=== PATIENT | female | born 1935 | race Caucasian/White ===

== ENCOUNTER 2017-09-25 08:44 | Observation (INO) ==
[2017-09-25] MEDS ORDERED: MECLIZINE 25 MG TABLET PO ONE (08:56)
[2017-09-25] MEDS ORDERED: SALINE FLUSH 10ml SYRINGE IVF PRN (08:56)
--- NOTE | 2017-09-25 09:00 | Emergency Department Report ---
Dizziness HPI - General Chief Complaint: Dizziness Stated Complaint: dizziness Time Seen by Provider: 09/25/17 08:47 Source: patient, EMS, RN notes reviewed, old records reviewed Mode of arrival: EMS Limitations: altered mental status - History of Present Illness HPI Narrative: 81yo woman presents to the ER by EMS this AM for 'dizziness'. Pt is unable to further describe her dizziness. Pt awoke this AM and needed to go to the bathroom. She required assistance of her to get there this AM (unclear whether to dizziness, lack of strength, or some other reason); once there, she was not able to stand up from the seat without help. Pt has difficulty answering questions directly. Pt talks around questions/ issues without addressing them initially. MD complaint: dizziness Onset (ago): hour(s) Timing: awoke with symptoms Description: lightheadedness History of similar episodes: Yes History of trauma: No Severity: similar to previous episodes Relieving factors: nothing Exacerbating factors: movement, exertion Associated symptoms: denies other symptoms - Related Data Home Medications Medication Instructions Recorded Confirmed Ropinirole HCl [Requip] 2 mg PO HS #0 08/04/08 09/25/17 Acetaminophen [Acetaminophen Extra 500 mg PO Q4H PRN #0 tab 07/02/15 09/25/17 Strength] Atorvastatin Calcium 20 mg PO HS #0 07/02/15 09/25/17 Carvedilol 3.125 mg PO BID #0 07/02/15 09/25/17 Rivaroxaban [Xarelto] 20 mg PO WS #0 tab 07/02/15 09/25/17 Donepezil HCl [Aricept] 10 mg PO DAILY 09/25/17 09/25/17 Duloxetine [Cymbalta] 60 mg PO DAILY 09/25/17 09/25/17 Levothyroxine Sodium 100 mcg PO ACB 09/25/17 09/25/17 Ropinirole [Requip] 0.5 mg PO PM 09/25/17 09/25/17 Allergies Allergy/AdvReac Type Severity Reaction Status Date / Time omeprazole Allergy Mild NAUSEA & Verified 09/25/17 08:50 VOMITING duloxetine Allergy Unknown DIARRHEA Verified 09/25/17 08:50 meloxicam Allergy Unknown Verified 09/25/17 08:50 Review of Systems All systems: reviewed and negative except as stated Musculoskeletal: Reports: as per HPI, other (Lack of strength). Denies: back pain, joint swelling, arthralgia, myalgia Neurological: Reports: as per HPI, weakness, confusion, abnormal gait, vertigo. Denies: headache, numbness, paresthesias [facility] Patient Stated Medical History Dementia Yes Hypertension Yes Myocardial Infarction Yes Other Musculoskeletal Yes: restless legs Medical History Updates: Hyperlipidemia. Hypertension. Hypothyroid. A-fib. RLS. Shingles Physical Exam - Limitations Limitations: altered mental status - General General appearance: alert, in no apparent distress, obese - Head Head exam: atraumatic, normocephalic, normal inspection - Eye Eye exam: Present: normal appearance, PERRL, EOMI. Absent: scleral icterus - ENT ENT exam: Present: normal exam, normal oropharynx, mucous membranes moist, normal external ear exam - Neck Neck exam: Present: normal inspection, full ROM, trachea midline. Absent: tenderness, lymphadenopathy - Chest Chest inspection: Present: normal inspection, symmetric chest wall rise. Absent : tenderness, rash - Respiratory Respiratory exam: Present: normal lung sounds bilaterally. Absent: respiratory distress, wheezes, stridor, prolonged expiratory phase, crackles - Cardiovascular Cardiovascular exam: Present: regular rate, normal rhythm, normal heart sounds. Absent: rubs, gallop, clicks - Abdominal Exam Abdominal exam: Present: soft, normal bowel sounds. Absent: distention, tenderness, guarding, rebound, rigidity - Extremities Exam Extremities exam: Present: normal inspection, full ROM, normal capillary refill. Absent: tenderness, pedal edema - Skin Skin exam: Present: warm, dry, intact. Absent: rash - Neurological Exam Neurological exam: Present: alert, reflexes normal. Absent: normal gait - Psychiatric Psychiatric exam: Present: agitated, anxious Course - Consultations Consultation #1: Hospitalist: Will accept pt for further eval of possible TIA/CVA. Time: 10:42 Vital Signs Pulse Rate 60 09/25/17 08:45 Blood Pressure 120/60 09/25/17 08:45 Temperature 97.6 F 09/25/17 08:50 Pulse Rate 60 09/25/17 08:50 Respiratory Rate 20 09/25/17 08:50 Blood Pressure 120/60 09/25/17 08:50 Pulse Oximetry 98 09/25/17 08:50 Dizziness - MDM Narrative Medical decision making narrative: Pt with initial episode of dysphagia and some orthostatic sx. Concern for TIA vs CVA, based on age, comorbidities, and presentation. Contacted hospitalist, who has agreed to admit pt for further eval. - Differential Diagnosis Likely: adverse reaction to drug, benign paroxysmal positional vertigo, orthostatic hypotension, cerebrovascular accident, transient cerebral ischemia - Medical Records Attestation: I reviewed the patient's medical records. - Lab Data Attestation: I reviewed the patient's lab results. Result diagrams: 09/25/17 09:01 09/25/17 09:01 Lab Results 09/25/17 09/25/17 09/25/17 Range/Units 08:58 09:01 09:01 WBC 6.2 (4.5-11.0) T/MM3 RBC 4.36 (4.00-5.20) M/MM3 Hgb 13.6 (12-16) GM/DL Hct 40.7 (36-46) % MCV 93.3 (80-100) UM3 MCH 31.2 (26-34) UUG MCHC 33.4 (31-37) GM/DL RDW Std Deviation 43.8 (36.9-50.2) FL Plt Count 229 (130-400) T/MM3 MPV 10.3 (9.4-12.4) UM3 Neutrophils % (Manual) 59.0 (33-66) % Lymphocytes % (Manual) 29.0 (23-45) % Reactive Lymphs % 1.0 H (0-0) % Monocytes % (Manual) 8.0 (0-9.0) % Eosinophils % (Manual) 3.0 (0-4) % Neutrophils # (Manual) 3.7 (1.8-7.7) T/MM3 Lymphocytes # (Manual) 1.8 (1-4.8) T/MM3 Abs React Lymphs (Man) 0.1 H (0-0) T/MM3 Monocytes # (Manual) 0.5 (0-0.8) T/MM3 Eosinophils # (Manual) 0.2 (0-0.5) T/MM3 RBC Morph Comment Normal Turbidity < 20 (0-20) Sodium 142 (134-144) MEQ/L Potassium 4.0 (3.6-5) MEQ/L Chloride 106 (98-107) MEQ/L Carbon Dioxide 28 (22-30) MEQ/L Anion Gap 8 (5-15) meq/L BUN 18.0 H (7-17) MG/DL Creatinine 0.9 (0.7-1.2) mg/dL GFR Calculation 60 BUN/Creatinine Ratio 20 (6-26) RATIO Glucose 101 (65-110) MG/DL Glucometer 101 (65-110) mg/dL Calculated Osmolality 275 (261-280) MOSM/KG Calcium 9.9 (8.4-10.2) MG/DL Total Bilirubin 0.50 (0.20-1.30) MG/DL Icterus Index < 2 (0-7) AST 25 (14-36) U/L ALT 20 (1-35) U/L Alkaline Phosphatase 112 (38-126) U/L Troponin I < 0.012 (0-0.12) ng/ml Total Protein 6.5 (6.3-8.2) g/dL Albumin 4.2 (3.5-5.0) g/dL Globulin 2.3 L (2.4-3.6) G/DL Albumin/Globulin Ratio 1.8 (1.1-2.2) RATIO Plasma Lactate 1.4 (0.6-2.2) MMOL/L Specimen Hemolysis < 15 (0-25) Ur Collection Type Urine Color (YELLOW) Urine Clarity Urine pH (5.0-8.0) Ur Specific [place] (1.015-1.025) Urine Protein (NEGATIVE) Urine Glucose (UA) (NEGATIVE) Urine Ketones (NEGATIVE) Urine Occult Blood (NEGATIVE) Urine Nitrate (NEGATIVE) Urine Bilirubin (NEGATIVE) Urine Urobilinogen (NORMAL) EU/DL Ur Leukocyte Esterase (NEGATIVE) Urinalysis Comment 09/25/17 Range/Units 09:23 WBC (4.5-11.0) T/MM3 RBC (4.00-5.20) M/MM3 Hgb (12-16) GM/DL Hct (36-46) % MCV (80-100) UM3 MCH (26-34) UUG MCHC (31-37) GM/DL RDW Std Deviation (36.9-50.2) FL Plt Count (130-400) T/MM3 MPV (9.4-12.4) UM3 Neutrophils % (Manual) (33-66) % Lymphocytes % (Manual) (23-45) % Reactive Lymphs % (0-0) % Monocytes % (Manual) (0-9.0) % Eosinophils % (Manual) (0-4) % Neutrophils # (Manual) (1.8-7.7) T/MM3 Lymphocytes # (Manual) (1-4.8) T/MM3 Abs React Lymphs (Man) (0-0) T/MM3 Monocytes # (Manual) (0-0.8) T/MM3 Eosinophils # (Manual) (0-0.5) T/MM3 RBC Morph Comment Turbidity (0-20) Sodium (134-144) MEQ/L Potassium (3.6-5) MEQ/L Chloride (98-107) MEQ/L Carbon Dioxide (22-30) MEQ/L Anion Gap (5-15) meq/L BUN (7-17) MG/DL Creatinine (0.7-1.2) mg/dL GFR Calculation BUN/Creatinine Ratio (6-26) RATIO Glucose (65-110) MG/DL Glucometer (65-110) mg/dL Calculated Osmolality (261-280) MOSM/KG Calcium (8.4-10.2) MG/DL Total Bilirubin (0.20-1.30) MG/DL Icterus Index (0-7) AST (14-36) U/L ALT (1-35) U/L Alkaline Phosphatase (38-126) U/L Troponin I (0-0.12) ng/ml Total Protein (6.3-8.2) g/dL Albumin (3.5-5.0) g/dL Globulin (2.4-3.6) G/DL Albumin/Globulin Ratio (1.1-2.2) RATIO Plasma Lactate (0.6-2.2) MMOL/L Specimen Hemolysis (0-25) Ur Collection Type Urine, void-cc/notcc Urine Color Yellow (YELLOW) Urine Clarity Clear Urine pH 8.0 (5.0-8.0) Ur Specific [place] 1.010 L (1.015-1.025) Urine Protein Negative (NEGATIVE) Urine Glucose (UA) Trace A (NEGATIVE) Urine Ketones Negative (NEGATIVE) Urine Occult Blood Negative (NEGATIVE) Urine Nitrate Negative (NEGATIVE) Urine Bilirubin Negative (NEGATIVE) Urine Urobilinogen 0.2 (NORMAL) EU/DL Ur Leukocyte Esterase Negative (NEGATIVE) Urinalysis Comment Microscopic not ind. - Radiology Data Attestation: I reviewed the patient's radiology results. CT Head: FINDINGS: Mild atrophy. The ventricles are stable. There are scattered areas of low attenuation in the white matter which most likely represent changes from chronic microvascular ischemia. The brainstem, cerebellum, and cerebral hemispheres otherwise have a normal morphology and CT attenuation. There is no evidence of midline displacement. No hemorrhage, signs of acute territorial stroke, mass effect, mass lesions, or edema is evident. The visualized portions of the skull base, midface, and calvarium demonstrate no abnormality. The paranasal sinuses are well aerated and free of significant disease. The tympanic and mastoid cavities appear normal. IMPRESSION: No acute intracranial abnormality or hemorrhage. CXR: IMPRESSION: Stable appearance of the chest without acute cardiopulmonary disease. - EKG Data EKG #1 EKG attestation: Yes: I reviewed and interpreted this EKG. EKG results narrative: Electronically paced Disposition Clinical Impression: TIA (transient ischemic attack) Qualifiers: Transient cerebral ischemia type: unspecified Qualified Code(s): G45.9 - Transient cerebral ischemic attack, unspecified Disposition: 02 To [facility] Print Language: Mauritian Condition: Improved Prescriptions: No Action Atorvastatin Calcium 20 mg PO HS #0 Duloxetine [Cymbalta] 60 mg PO DAILY Ropinirole [Requip] 0.5 mg PO PM Ropinirole HCl [Requip] 2 mg PO HS #0 Rivaroxaban [Xarelto] 20 mg PO WS #0 tab Carvedilol 3.125 mg PO BID #0 Acetaminophen [Acetaminophen Extra Strength] 500 mg PO Q4H PRN #0 tab PRN Reason: PAIN Levothyroxine Sodium 100 mcg PO ACB Donepezil HCl [Aricept] 10 mg PO DAILY Referrals: Vanessa Melton DO [Physician] - Time of Disposition: 10:48 - Seen By: physician
--- OUTSIDE RECORDS SUMMARY | 2017-09-25 09:02 | External Medical Summary | Referral Summary ---
:1935 Author Organization [facility] Address [address] [place] [address] Care Team Providers Name Role Phone Vanessa Melton Primary Care Physician Encounter VC Date(s): 05/20/17 - 05/20/17 [facility] [address] [place] [address]- [place] Discharge Diagnosis: Right trigger finger Discharge Disposition: 01-Home or Self Care Attending Physician: Matias Cruz MD Admitting Physician: Matias Cruz MD Problem List Condition Effective Dates Status Health Status Informant Anxiety(Confirmed) Active Afib(Confirmed) Active Cataracts(Confirmed) Active Chicken pox(Confirmed)1 Active Disease - Malignant Polyp x1, 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) Dry eyes(Confirmed) Active Ear infection(Confirmed)2 Active Esophageal reflux(Confirmed) 2006 Active Fibromyalgia(Confirmed) Active History of blood 1967 Active transfusion(Confirmed) History of heart attack(Confirmed) 03/2014 Active Hypothyroidism(Confirmed) Active Osteoarthritis(Confirmed) Active Osteoporosis(Confirmed) Active Primary osteoarthritis of left Active knee(Confirmed) Pure hypercholesterolemia(Confirmed) Active RLS (restless legs Active syndrome)(Confirmed) Stress incontinence(Confirmed) Active 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 Active Medications acetaminophen 1,000 mg, Oral, q6hr Start Date: 03/27/14 Status: Orderedatorvastatin 20 mg oral tablet See Instructions, TAKE 1 TABLET AT BEDTIME, # 90 tabs, 1 Refill(s), eRx: [facility] Start Date: 10/13/16 Status: Orderedcarvedilol 3.125 mg oral tablet 1 tabs, Oral, BID, # 60 tabs, 0 Refill(s) Start Date: 06/09/14 Status: OrderedDULoxetine 60 mg oral delayed release capsule See Instructions, TAKE 1 CAPSULE EVERY DAY. DO NOT CRUSH OR CHEW, # 90 caps, 1 Refill(s), eRx: [facility] Start Date: 10/13/16 Status: Orderedlevothyroxine 100 mcg (0.1 mg) oral tablet See Instructions, TAKE 1 TABLET EVERY DAY, # 90 tabs, 1 Refill(s), eRx: [facility] Start Date: 10/13/16 Status: Orderedlevothyroxine 100 mcg (0.1 mg) oral tablet See Instructions, TAKE 1 TABLET EVERY DAY, # 90 tabs, 1 Refill(s), eRx: [facility] Start Date: 10/13/16 Status: OrderedNasal Mist 2 sprays, Nasal, BID, Nasal Congestion, 0 Refill(s) Start Date: 03/23/14 Status: Orderednystatin 100,000 units/g topical powder 1 dorothy, Topical, BID, # 30 g, 0 Refill(s), Pharmacy: [facility] #[id number] Start Date: 12/24/16 Status: OrderedRefresh 1 drops, Eye-Both, BID, Dry Eyes, 0 Refill(s) Start Date: 03/23/14 Status: OrderedrOPINIRole 2 mg oral tablet See Instructions, TAKE 1 TABLET EVERY DAY, # 90 tabs, 2 Refill(s), eRx: [facility] Start Date: 12/30/16 Status: OrderedXarelto 20 mg oral tablet 20 mg 1 tabs, Oral, qPM, # 90 tabs, 0 Refill(s), Pharmacy: [facility], 1 tabs Oral qPM Start Date: 06/13/15 Status: Ordered Immunizations Given and Recorded Vaccine Date Status Refusal Reason pneumococcal 13-valent conjugate vaccine 02/17/17 Recorded pneumococcal 13-valent conjugate vaccine 06/05/14 Given influenza virus vaccine, inactivated 02/17/17 Recorded influenza virus vaccine, inactivated1 02/20/16 Given influenza virus vaccine, inactivated 03/20/14 Recorded hepatitis B adult vaccine 07/20/13 Given hepatitis B adult vaccine 05/19/13 Given influenza virus vaccine, live 05/19/13 Given influenza virus vaccine, live 05/17/12 Given zoster vaccine live 08/20/11 Recorded pneumococcal 23-polyvalent vaccine 05/01/08 Recorded pneumococcal 23-polyvalent vaccine 03/17/02 Recorded tetanus-diphth toxoids (Td) adult/adol 03/29/07 Recorded 1Result Comment: [facility] Procedures Procedure Date Related Diagnosis Body Site Injection(s); single tendon sheath, or ligament, 05/20/17 aponeurosis (eg, plantar "fascia") Mammogram1 03/05/16 Cardiac pacemaker 03/2014 Colonoscopy 09/29/13 Colonoscopy, Diverticula2 2013 Cataract extraction - Right 2008 Cataract extraction - Left 2006 Benign Breast lumpectomy 1985 Dilation and curettage 1done at [id number] not need to repeat - Personal History adenomatous Polyps Social History Social History Type Response Smoking Status Never smoker entered on: 03/27/14 Assessment and Plan Extracted from: Title: LJ New Patient Author: Matias Cruz MD Date: 05/20/17 Impression and Plan Diagnosis Right trigger finger ([id number] M65.30, Discharge, Medical). Course: Worsening. Patient Instructions: Counseled: Patient, Regarding diagnosis, Verbalized understanding. Orders Orders (Selected) Outpatient Orders Ordered Injection(s); Single Tendon Sheath, Or Ligament Aponeurosis [id number]: Office Visit Level 3 New [id number]: . Dx and Plan Dx/Order Association Plan: Diagnosis: 1. Right trigger finger Comment: This is a 81 year-old female, NTY Rt ring finger triggering. Onset: approx 1-2 months, denies injury. Prev Buhr pt 2014. The pt has a R ring finger trigger finger. We discussed different treatment optio ns including a trigger finger injection and surgical release of the A1 carla. The plan is to try a R ring finger trigger finger injection. The pt will f/u as needed. Trigger Injection: 40 mg Kenalog Technique: The palm was prepped with alcohol and injection of 1% lidocaine with Epinephrine was performed in the subQ at the A1 carla of the R ring finger. The injection was allowed to sit for at [address] 5 minutes. The palm was prepped with Chlorhexidine and injection of 40 mg of Kenalog was performed in the R ring finger. .
--- NOTE | 2017-09-25 09:43 | CT Scan Report ---
Indication: dizziness; h/o CAD PROCEDURE: CT head/brain wo con: Encounter: Initial Comparison: Head CT dated March 18, 2014 Technique: Axial CT images through the head were performed without contrast. Iterative Reconstruction dose reducing technique was utilized. FINDINGS: Mild atrophy. The ventricles are stable. There are scattered areas of low attenuation in the white matter which most likely represent changes from chronic microvascular ischemia. The brainstem, cerebellum, and cerebral hemispheres otherwise have a normal morphology and CT attenuation. There is no evidence of midline displacement. No hemorrhage, signs of acute territorial stroke, mass effect, mass lesions, or edema is evident. The visualized portions of the skull base, midface, and calvarium demonstrate no abnormality. The paranasal sinuses are well aerated and free of significant disease. The tympanic and mastoid cavities appear normal. IMPRESSION: No acute intracranial abnormality or hemorrhage. .
--- NOTE | 2017-09-25 09:57 | XRay Report ---
Indication: Dizziness PROCEDURE: XR chest 1V: Encounter: Initial Comparison: March 22, 2014 Findings: The lungs are stable in appearance without new focal airspace consolidation. There is no pleural effusion or pneumothorax. The heart size, pulmonary vascularity and mediastinal contours are unchanged. Left pacemaker. IMPRESSION: Stable appearance of the chest without acute cardiopulmonary disease. .
[2017-09-25 11:35] VITALS: RESP 16
[2017-09-25 11:36] VITALS: BMI 26.6
[2017-09-25] MEDS: NS 1,000 ML IV SCH ×2 (13:05→23:13)
--- NOTE | 2017-09-25 13:08 | History & Physical Report ---
History of Present Illness Date: 09/25/17 Chief complaint: Dizziness HPI: Patient is a pleasant 81-year-old female who presented to the emergency room today for acute evaluation of dizziness. She reports that she awoke early this morning following a nightmare. She states that she attempted to get out of bed and had a sudden onset of dizziness. She was unable to ambulate and her contacted EMS. Patient was transported to [facility] emergency room for acute evaluation and treatment. Laboratory studies were obtained. CBC is normal , chemistry panel unremarkable, urinalysis unremarkable. EKG reveals a paced cardiac rhythm. Chest x-ray is negative. CT scan of the head revealed no acute intracranial abnormality or hemorrhage, noted presence of chronic microvascular ischemia. Patient was noted to be orthostatic as blood pressure dropped from 120 /62, 109/75 with tachycardia up to 119. Given the concern for a possible CVA the hospitalists were contacted for outpatient admission for further evaluation and treatment History of seen on arrival to medical unit. She is alert, oriented and pleasant. She describes this morning events as listed above. Upon further evaluation, it is noted that she has some aphasia during calmer station. As we discussed this further, she reports that this has been ongoing since her "heart event" in 2013. At that time she was admitted to [facility] with dizziness and atrial fibrillation. She had a [employer] pacemaker placed on 03/24/14 under the care of Dr. Mckinney. Since that time she has felt that her mind continues to decline in the sense that she will have trouble remembering easy words or names of people. At time of examination. She denies having any dizziness, headaches, visual changes or any pain. Her neurologic exam is normal, cranial nerves II through XII are intact. No motor or sensory deficits appreciated. 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 Hyperlipidemia. Hypertension. Hypothyroid. A-fib- hx. RLS. Shingles Surgical History: Pacemaker placement-2013. Colonoscopy-2008, 2013. Cardiac catheter-2013 Family History: Father-diabetes. Mother-stroke Family History: As Above - Social History Smoking status: Never smoker Substance use type: does not use Alcohol intake frequency: holidays/special occasions only (wine) Housing: assisted living facility Household members: spouse Current occupational status: retired Social history: Recently moved to independent living at [facility] with her . Primary care provider, Dr. Vanessa Melton Medications Home Medications Medication Instructions Recorded Confirmed Type Ropinirole HCl [Requip] 2 mg PO HS #0 08/04/08 09/25/17 History Acetaminophen [Acetaminophen Extra 500 mg PO Q4H PRN #0 tab 07/02/15 09/25/17 History Strength] Atorvastatin Calcium 20 mg PO HS #0 07/02/15 09/25/17 History Carvedilol 3.125 mg PO BID #0 07/02/15 09/25/17 History Rivaroxaban [Xarelto] 20 mg PO WS #0 tab 07/02/15 09/25/17 History Donepezil HCl [Aricept] 10 mg PO DAILY 09/25/17 09/25/17 History Duloxetine [Cymbalta] 60 mg PO DAILY 09/25/17 09/25/17 History Levothyroxine Sodium 100 mcg PO ACB 09/25/17 09/25/17 History Ropinirole [Requip] 0.5 mg PO PM 09/25/17 09/25/17 History Allergies Allergy/AdvReac Type Severity Reaction Status Date / Time omeprazole Allergy Mild NAUSEA & Verified 09/25/17 08:50 VOMITING duloxetine Allergy Unknown DIARRHEA Verified 09/25/17 08:50 meloxicam Allergy Unknown Verified 09/25/17 08:50 Exam Vital Signs: Temperature 95.5 F L 09/25/17 11:31 Pulse Rate 63 09/25/17 12:07 Respiratory Rate 16 09/25/17 11:31 Blood Pressure 143/77 H 09/25/17 12:07 Pulse Oximetry 99 09/25/17 11:31 Telemetry Rhythm: Wandering Atrial Pacemaker Height/Weight/BMI: Height 1.63 m Weight 70.5 kg Body Mass Index 26.6 - Constitutional Present: no acute distress, well nourished, well developed - Routine HEENT Exam Eye: Present: EOMI, PERRL ENT: Present: mucous membranes moist, dentition normal - Routine Respiratory Exam Present: CTA bilaterally. Absent: wheezes - Routine Cardiovascular Exam Present: RRR, S1, S2. Absent: murmur - Routine Abdominal Exam Present: soft, normoactive bowel sounds, non distended. Absent: tenderness - Routine Extremities Exam Present: no edema, pulses intact - Routine Back/Spine/Pelvis Exam Back/Spine: Present: full ROM - Routine Skin Exam Present: intact, dry, warm - Routine Neurological Exam Present: alert, oriented X3, CN II-XII intact, moving all extremities, vision grossly intact, hearing grossly intact, normal speech - Routine Psychiatric Exam Present: normal affect, normal thought process, cooperative Results - Labs CBC & Chem 7: 09/25/17 09:01 09/25/17 09:01 Assessment and Plan (1) Dizziness Current visit: Yes Status: Acute Assessment and Plan: Impression Dizziness- transient Chronic aphasia-3 years Hypercholesterolemia Hypothyroidism Coronary artery disease GERD Osteoarthritis Restless leg syndrome History of atrial fib History of malignant polyp-tubular adenoma Plan Admit patient Should patient observation for monitoring given dizziness At time of admission her symptoms have resolved. Orthostatic vital signs are negative and patient is asymptomatic Unfortunately, due to her pacemaker. We are unable to obtain an MRI to rule out acute ischemia We will continue to monitor patient on cardiac telemetry Will obtain a TSH for laboratory completeness Home medications are reviewed. Patient is chronically on Xarelto for anticoagulation Regarding Aphasia- has been chronic . However, she relates it worsening following her cardiac event in 2013 in which she had pacemaker placed. The difficulty in finding words, may be related to TIA, microvascular chronic ischemia, early dementia ? Normal saline at 100 mL per hour for gentle hydration PT/OT consultation to evaluate gait and safety SCDs to bilateral lower extremity for DVT prophylaxis Will discuss further orders and plan of care with attending, Dr. Madera At time of discharge medical care will return to primary care provider, Dr Melton DVT Prophylaxis: SCD's Resuscitation Status: Full Code - Physician Narrative Physician: Elvia Madera MD Narrative: Date: 09/25/17 Time: 1839 Ms. Weiss was independently interviewed and examined by me. She's a very pleasant lady who is resting comfortably in bed. Her symptoms have completely resolved. She denies having any recent fever or chills, she denies any recent lightheadedness or dizziness. She denies any cough or shortness of breath. She denies any chest pain or palpitations. She denies any nausea, vomiting, diarrhea , constipation, black tarry stools or bloody stools. She denies any genitourinary symptoms. She occasionally has lower extremity edema if she's on her feet all day. She does have some chronic pain in her right knee which she reports needs to be replaced. She currently has a very mild headache in the frontal area. She did describe to me her symptoms which were that of the room spinning. She does not think she had any garbled speech and her son his presence states that dad probably wouldn't of hurt it anyway. She states that when she 1st woke up from her nightmare she was a little disoriented and not fully awake. When she became fully awake her speech was fine and she asked her to take her to the bathroom. The world was still spinning at that point. He had to help her back to the bathroom as well. She has never had this before. She couldn't get it to resolved so she presented to the ER via EMS. She was not orthostatic. She was given meclizine in the ER. Her CT of the head was negative. By the time she arrived to the floor her symptoms had resolved. I did have a long discussion with her about workup for TIA/stroke. Due to her chronic atrial fibrillation on chronic oral anticoagulation and her known mild coronary artery disease I think it is worthwhile keeping her here to do the complete stroke workup. She is unable to have an MRI due to her MRI not compatible pacemaker. We will plan on doing another CT with contrast on Thursday. We will proceed with the echocardiogram and carotid artery Doppler's as well. If everything works out negative she could probably go home at that point. Her pigment supplier is Dr. Mckinney and her primary care physician is Dr. Melton. Last echo that I can see was in 2013. At that time she had normal ejection fraction. She had no evidence of a left right shunt. She had minimal valvular heart disease. Her heart catheterization was done in 2013 which showed slow flow in the LAD with 20 to 30% approximately. She is not on aspirin but is being maintained on Xarelto for stroke prevention of her atrial fibrillation. PE: Gen: alert and oriented. NAD Skin: warm and dry HEENT: NC/AT PERRL, EOMI, Sclera, lids and conjunctiva wnl. MMM. OP clear. Neck: No JVD, Carotids 2+ without bruits Lungs: clear. No rales, rhonchi or wheezes CV: regular. No murmur, rub or gallop Abd: soft. +BS. NT/ND MS: No edema. Good strength and ROM bilaterally Neuro: No focal deficits Psy: Appropriate mood and affect Assessment and plan: Dizziness- transient -this sounds like vertigo -meclizine PRN -we will proceed however with rule out including carotid Doppler, transthoracic echo and repeat CT of the head with and without contrast on Thursday -add low-dose aspirin Chronic aphasia-3 years -this sounds more like a dementia issue as she doesn't even know what she wants to say it's not that she knows wants to say but can't express it. Hypercholesterolemia -patient is on a Statin, will continue that Hypothyroidism -continue supplements -check TSH Coronary artery disease -this was minimal coronary artery disease -patient is on a Statin but no aspirin -Dr. Mckinney is her pigment supplier atrial fibrillation -history of DC cardioversion in 2013 -on Xarelto -telemetry dementia -on Aricept hypertension -continue available restless leg syndrome -continue Requip Osteoarthritis -chronic right knee pain -Tylenol for pain relief History of malignant polyp-tubular adenoma I have reviewed the patient's labs, notes and imaging. I have done a detailed physical exam as noted above. H&P has been discussed with nurse practitioner and my changes have been noted above. Hospital Course Summary Disclaimer: The visit summary below is not to be considered part of the above Progress Note. Hospital Course: Impression Dizziness- transient Chronic aphasia-3 years Hypercholesterolemia Hypothyroidism Coronary artery disease GERD Osteoarthritis Restless leg syndrome History of atrial fib History of malignant polyp-tubular adenoma Plan Admit patient Should patient observation for monitoring given dizziness At time of admission her symptoms have resolved. Orthostatic vital signs are negative and patient is asymptomatic Unfortunately, due to her pacemaker. We are unable to obtain an MRI to rule out acute ischemia We will continue to monitor patient on cardiac telemetry Will obtain a TSH for laboratory completeness Home medications are reviewed. Patient is chronically on Xarelto for anticoagulation Regarding Aphasia- has been chronic . However, she relates it worsening following her cardiac event in 2013 in which she had pacemaker placed. The difficulty in finding words, may be related to TIA, microvascular chronic ischemia, early dementia ? Normal saline at 100 mL per hour for gentle hydration PT/OT consultation to evaluate gait and safety SCDs to bilateral lower extremity for DVT prophylaxis Will discuss further orders and plan of care with attending, Dr. Madera At time of discharge medical care will return to primary care provider, Dr Melton
[2017-09-25] MEDS ORDERED: ACETAMINOPHEN 500 MG TABLET PO PRN (13:15)
[2017-09-25] MEDS ORDERED: ROPINIROLE 0.5 MG TABLET PO SCH (15:08)
[2017-09-25] MEDS ORDERED: ROPINIROLE 0.5 MG TABLET PO PRN ×2 (15:30→20:00)
[2017-09-25] MEDS: RIVAROXABAN 20 MG TABLET PO SCH (18:36)
[2017-09-25] MEDS: ROPINIROLE 0.5 MG TABLET PO PRN (18:44)
[2017-09-25] MEDS: ASPIRIN 81 MG CHEWABLE TABLET PO SCH (21:13)
[2017-09-25] MEDS: ATORVASTATIN 20 MG TABLET PO SCH (21:13)
[2017-09-25] MEDS: CARVEDILOL 3.125 MG TABLET PO SCH (21:14)
[2017-09-25] MEDS: DONEPEZIL 10 MG TABLET PO SCH (21:15)
[2017-09-25] MEDS: ROPINIROLE 2 MG TABLET PO SCH (21:15)
[2017-09-26] MEDS: LEVOTHYROXINE 100 MCG TABLET PO SCH (06:24)
[2017-09-26] MEDS: CARVEDILOL 3.125 MG TABLET PO SCH ×2 (08:46→20:21)
[2017-09-26] MEDS: ASPIRIN 81 MG CHEWABLE TABLET PO SCH (08:46)
[2017-09-26] MEDS: DULOXETINE 60 MG CAPSULE PO SCH (08:47)
[2017-09-26] MEDS: NS 1,000 ML IV SCH (09:51)
--- NOTE | 2017-09-26 15:10 | Progress Note ---
- Date 09/26/17 Subjective: Patient is a pleasant 81-year-old female who presented to the emergency room for acute evaluation of dizziness. She reports that she awoke early in the morning following a nightmare. She states that she attempted to get out of bed and had a sudden onset of dizziness. She was unable to ambulate and her contacted EMS. Patient was transported to [facility] emergency room for acute evaluation and treatment. Laboratory studies were obtained. CBC is normal, chemistry panel unremarkable, urinalysis unremarkable. EKG reveals a paced cardiac rhythm. Chest x-ray is negative. CT scan of the head revealed no acute intracranial abnormality or hemorrhage, noted presence of chronic microvascular ischemia. Patient was noted to be orthostatic as blood pressure dropped from 120/62, 109/75 with tachycardia up to 119. Given the concern for a possible CVA the hospitalists were contacted for outpatient admission for further evaluation and treatment When seen by me she is resting comfortably in bed. Her symptoms have completely resolved. She denies having any recent fever or chills, she denies any recent lightheadedness or dizziness. She denies any cough or shortness of breath. She denies any chest pain or palpitations. She denies any nausea, vomiting, diarrhea , constipation, black tarry stools or bloody stools. She denies any genitourinary symptoms. She occasionally has lower extremity edema if she's on her feet all day. She does have some chronic pain in her right knee which she reports needs to be replaced. She currently has a very mild headache in the frontal area. She did describe to me her symptoms which were that of the room spinning. She does not think she had any garbled speech and her son who is present stated that dad probably wouldn't have heart it anyway as he is [place]. She states that when she 1st woke up from her nightmare she was a little disoriented and not fully awake. When she became fully awake her speech was fine and she asked her to take her to the bathroom. The world was still spinning at that point. He had to help her to and from the bathroom. She has never had this before. She couldn't get it to resolved so she presented to the ER via EMS. She was orthostatic. She was given IVF and meclizine in the ER. Her CT of the head was negative. By the time she arrived to the floor her symptoms had resolved. I did have a long discussion with her about workup for TIA/stroke. Due to her chronic atrial fibrillation on chronic oral anticoagulation and her known mild coronary artery disease I think it is worthwhile keeping her here to do the complete stroke workup. She is unable to have an MRI due to her MRI non- compatible pacemaker. We will plan on doing another CT with contrast on Thursday. We will proceed with the echocardiogram and carotid artery Doppler's as well. If everything works out negative she could probably go home at that point. Her office administrator is Dr. Mckinney and her primary care physician is Dr. Melton. Last echo that I can see was in 2013. At that time she had normal ejection fraction. She had no evidence of a left to right shunt. She had minimal valvular heart disease. Her heart catheterization was done in 2013 which showed slow flow in the LAD with 20 to 30% proximately. She is not on aspirin but is being maintained on Xarelto for stroke prevention of her atrial fibrillation. This morning she is feeling good. She states she's had the best night's sleep she has had in a long time last evening. She still has some short-term memory issues but there is no difficulty in word finding this morning. She has no focal neuro deficit. She denies feeling fevers or chills, cold or flu like symptoms. She denies any shortness of breath. She denies palpitations or chest pain. She denies nausea vomiting, diarrhea or constipation. She tells me she thinks that this may have all been because of her stress from the recent move. She has not had any of her testing done yet today. Objective Vital signs: Temperature 96.5 F L 09/26/17 07:20 Pulse Rate 66 09/26/17 07:20 Respiratory Rate 16 09/26/17 07:20 Blood Pressure 140/66 H 09/26/17 07:20 Pulse Oximetry 97 09/26/17 00:00 Height/Weight/BMI: Height 1.63 m Weight 73.4 kg Body Mass Index 26.6 Comments: Gen: alert and oriented. NAD Skin: warm and dry HEENT: NC/AT PERRL, EOMI, Sclera, lids and conjunctiva wnl. MMM. OP clear. Neck: No JVD, Carotids 2+ without bruits Lungs: clear. No rales, rhonchi or wheezes CV: regular. No murmur, rub or gallop Abd: soft. +BS. NT/ND MS: No edema. Good strength and ROM bilaterally Neuro: No focal deficits Psy: Appropriate mood and affect Results - Labs CBC & Chem 7: 09/25/17 09:01 09/25/17 09:01 Assessment and Plan (1) Dizziness Current visit: Yes Status: Acute Assessment and Plan: Assessment and plan: Dizziness- transient -this sounds like vertigo -meclizine PRN -Carotid Doppler, transthoracic echo still pending performance -Repeat CT of the head with and without contrast tomorrow -add low-dose aspirin -Already on a statin Chronic aphasia-3 years -I don't think this is really aphasia. This sounds more like a memory issue -this sounds more like a dementia issue as she doesn't even know what she wants to say it's not that she knows wants to say but can't express it. Hypercholesterolemia -patient is on a Statin, will continue that -fasting lipid in a.m. Hypothyroidism -continue supplements -TSH-is elevated, will check her free T4 Coronary artery disease -this was minimal coronary artery disease -patient is on a Statin but no aspirin -Dr. Mckinney is her office administrator atrial fibrillation -history of DC cardioversion in 2013 -on Xarelto -telemetry dementia -on Aricept hypertension -continue carvedilol restless leg syndrome -continue Requip Osteoarthritis -chronic right knee pain -Tylenol for pain relief History of malignant polyp-tubular adenoma At time of discharge medical care will return to primary care provider, Dr Melton - Physician Narrative Narrative: Date: 09/26/17 Time: 1504 Hospital Course Summary Disclaimer: The visit summary below is not to be considered part of the above Progress Note. Hospital Course: Impression Dizziness- transient Chronic aphasia-3 years Hypercholesterolemia Hypothyroidism Coronary artery disease GERD Osteoarthritis Restless leg syndrome History of atrial fib History of malignant polyp-tubular adenoma Plan Admit patient Should patient observation for monitoring given dizziness At time of admission her symptoms have resolved. Orthostatic vital signs are negative and patient is asymptomatic Unfortunately, due to her pacemaker. We are unable to obtain an MRI to rule out acute ischemia We will continue to monitor patient on cardiac telemetry Will obtain a TSH for laboratory completeness Home medications are reviewed. Patient is chronically on Xarelto for anticoagulation Regarding Aphasia- has been chronic . However, she relates it worsening following her cardiac event in 2013 in which she had pacemaker placed. The difficulty in finding words, may be related to TIA, microvascular chronic ischemia, early dementia ? Normal saline at 100 mL per hour for gentle hydration PT/OT consultation to evaluate gait and safety SCDs to bilateral lower extremity for DVT prophylaxis Will discuss further orders and plan of care with attending, Dr. Madera At time of discharge medical care will return to primary care provider, Dr Melton
[2017-09-26] MEDS: ROPINIROLE 0.5 MG TABLET PO PRN (15:42)
[2017-09-26] MEDS: RIVAROXABAN 20 MG TABLET PO SCH (16:55)
[2017-09-26] MEDS: DONEPEZIL 10 MG TABLET PO SCH (20:21)
[2017-09-26] MEDS: ROPINIROLE 2 MG TABLET PO SCH (20:21)
[2017-09-26] MEDS: ATORVASTATIN 20 MG TABLET PO SCH (20:21)
[2017-09-27] MEDS ORDERED: SALINE FLUSH 10ml SYRINGE ONE (00:20)
[2017-09-27] MEDS ORDERED: IOHEXOL 300mg/ml 50ml INJECTION ONE (00:20)
[2017-09-27] MEDS: LEVOTHYROXINE 100 MCG TABLET PO SCH (06:13)
[2017-09-27 07:53] VITALS: BP 126/67; PULSE 69; TEMP 96.6; O2SAT 96
[2017-09-27] MEDS: DULOXETINE 60 MG CAPSULE PO SCH (08:34)
[2017-09-27] MEDS: ASPIRIN 81 MG CHEWABLE TABLET PO SCH (08:34)
[2017-09-27] MEDS: CARVEDILOL 3.125 MG TABLET PO SCH (08:34)
--- NOTE | 2017-09-27 09:56 | CT Scan Report ---
Indication: TIA symptoms PROCEDURE: CT head/brain wo/w con: Encounter: Initial Comparison: Head CT dated September 25, 2017 Technique: Axial CT images through the head were performed without and with IV contrast. Iterative Reconstruction dose reducing technique was utilized. Contrast: Omnipaque 300 50mL FINDINGS: Mild atrophy. Microvascular ischemic white matter changes are again noted. The ventricles are of normal size, shape, and contour for the patient's age. The brainstem, cerebellum, and cerebral hemispheres otherwise have a normal morphology and CT attenuation. No hemorrhage, mass effect, mass lesions, or edema is evident. No areas of abnormal enhancement are seen. The visualized portions of the skull base, sinuses, and calvarium demonstrate no abnormality. IMPRESSION: No acute intracranial abnormality. No evidence of acute infarct. Stable head CT. There is a preliminary report by [employer] radiologic. .
--- NOTE | 2017-09-27 10:02 | Ultrasound Report ---
Indication: TIA symptoms PROCEDURE: US carotid doppler BI: TECHNIQUE: Grayscale, color and duplex Doppler imaging was performed of the carotid systems bilaterally. Velocities in cm/sec - validated velocity measurements with angiographic measurements, velocity criteria are extrapolated from diameter data as defined by the Society of Radiologists in Ultrasound Consensus Conference Radiology 2003; 229;340-346. RIGHT: PSV ICA 82.5 EDV ICA 20.6 PSV CCA 93.6 EDV CCA 14.7 PSV ECA 79.9 ICA Diameter reduction <20% (0.8-1.0)% LEFT: PSV ICA 96.8 EDV ICA 21.2 PSV CCA 115 EDV CCA 13.5 PSV ECA 90.4 ICA Diameter reduction <20% (0.8-1.0)% The right vertebral artery is patent with cephalic flow. The left vertebral artery is patent with cephalic flow. IMPRESSION: No hemodynamically significant carotid stenosis. No significant atherosclerotic plaque. .
--- NOTE | 2017-09-27 13:15 | Discharge Summary ---
Discharge Information Date of admission: 09/25/17 10:48 Anticipated date of discharge: 09/27/17 Attending Physician: Elvia Madera MD Primary care physician: Damián Mckinney MD - Discharge Diagnosis (1) Dizziness Status: Acute 1. Acute Vertigo, resolved -TIA vs. Labyrinthitis -Likely dehydration component (Mild orthostasis) 2. Chronic memory changes 3. Atrial Fib on Chronic Anticoagulation 4. Hypothyroidism with elevated TSH 5. HLD 6. CAD 7. HTN 8. RLS - Laboratory Labs: Laboratory Results - last 48 hr 09/25/17 09/27/17 09:01 05:21 Triglycerides 76 Cholesterol 179 LDL Cholesterol, Calc 75.8 VLDL Cholesterol 15.2 HDL Cholesterol 88 H Cholesterol/HDL Ratio 2.0 Plasma Lactate Cancelled TSH 9.71 H Laboratory Tests 09/25/17 09/25/17 09/25/17 08:58 09:01 09:01 WBC 6.2 RBC 4.36 Hgb 13.6 Hct 40.7 MCV 93.3 MCH 31.2 MCHC 33.4 RDW Std Deviation 43.8 Plt Count 229 MPV 10.3 Neutrophils % (Manual) 59.0 Lymphocytes % (Manual) 29.0 Reactive Lymphs % 1.0 H Monocytes % (Manual) 8.0 Eosinophils % (Manual) 3.0 Neutrophils # (Manual) 3.7 Lymphocytes # (Manual) 1.8 Abs React Lymphs (Man) 0.1 H Monocytes # (Manual) 0.5 Eosinophils # (Manual) 0.2 RBC Morph Comment Normal Turbidity < 20 Sodium 142 Potassium 4.0 Chloride 106 Carbon Dioxide 28 Anion Gap 8 BUN 18.0 H Creatinine 0.9 GFR Calculation 60 BUN/Creatinine Ratio 20 Glucose 101 Glucometer 101 Calculated Osmolality 275 Calcium 9.9 Total Bilirubin 0.50 Icterus Index < 2 AST 25 ALT 20 Alkaline Phosphatase 112 Troponin I < 0.012 Total Protein 6.5 Albumin 4.2 Globulin 2.3 L Albumin/Globulin Ratio 1.8 Triglycerides Cholesterol LDL Cholesterol, Calc VLDL Cholesterol HDL Cholesterol Cholesterol/HDL Ratio Plasma Lactate 1.4 TSH Specimen Hemolysis < 15 Ur Collection Type Urine Color Urine Clarity Urine pH Ur Specific [place] Urine Protein Urine Glucose (UA) Urine Ketones Urine Occult Blood Urine Nitrate Urine Bilirubin Urine Urobilinogen Ur Leukocyte Esterase Urinalysis Comment - Radiology Radiology: CT #2 IMPRESSION: No acute intracranial abnormality. No evidence of acute infarct. Stable head CT. There is a preliminary report by virtual radiologic. . CT #1 IMPRESSION: No acute intracranial abnormality or hemorrhage. . Carotid doppler The right vertebral artery is patent with cephalic flow. The left vertebral artery is patent with cephalic flow. IMPRESSION: No hemodynamically significant carotid stenosis. No significant atherosclerotic plaque. . Carotid doppler: No hemodynamically significant carotid stenosis. No significant atherosclerotic plaque. Transthoracic Echo: Normal EF 62%, Mild AI, Mild TR, PAP 46, SERGO History of Present Illness HPI: Patient is a pleasant 81-year-old female who presented to the emergency room today for acute evaluation of dizziness. She reports that she awoke early this morning following a nightmare. She states that she attempted to get out of bed and had a sudden onset of dizziness. She was unable to ambulate and her contacted EMS. Patient was transported to [facility] emergency room for acute evaluation and treatment. Laboratory studies were obtained. CBC is normal , chemistry panel unremarkable, urinalysis unremarkable. EKG reveals a paced cardiac rhythm. Chest x-ray is negative. CT scan of the head revealed no acute intracranial abnormality or hemorrhage, noted presence of chronic microvascular ischemia. Patient was noted to be orthostatic as blood pressure dropped from 120 /62, 109/75 with tachycardia up to 119. Given the concern for a possible CVA the hospitalists were contacted for outpatient admission for further evaluation and treatment History of seen on arrival to medical unit. She is alert, oriented and pleasant. She describes this morning events as listed above. Upon further evaluation, it is noted that she has some aphasia during calmer station. As we discussed this further, she reports that this has been ongoing since her "heart event" in 2013. At that time she was admitted to [facility] with dizziness and atrial fibrillation. She had a [employer] pacemaker placed on 03/24/14 under the care of Dr. Mckinney. Since that time she has felt that her mind continues to decline in the sense that she will have trouble remembering easy words or names of people. At time of examination. She denies having any dizziness, headaches, visual changes or any pain. Her neurologic exam is normal, cranial nerves II through XII are intact. No motor or sensory deficits appreciated. On the date of dismissal, she is feeling quite a bit better. Symptoms of vertigo have resolved. She reports that on date of admission, her vertigo was made much worse by any movement of her head. She and her have recently moved into an apartment, and she has been busy sorting and packing their belongings from the last 20 years. She expresses that she understands she will need to slow down a bit and is agreeable to dismissal today. We had a long discussion re: imaging, possible causes of vertigo, and when to seek emergency help. I have encouraged her to follow up with Dr. Melton in the next week and not drive until she is cleared by her PCP. Objective Vital signs: Temperature 96.6 F L 09/27/17 07:50 Pulse Rate 69 09/27/17 07:50 Respiratory Rate 16 09/27/17 07:50 Blood Pressure 126/67 09/27/17 07:50 Pulse Oximetry 96 09/27/17 07:50 Height/Weight/BMI: Height 1.63 m Weight 72.5 kg Body Mass Index 26.6 - Constitutional Present: no acute distress, well nourished, well developed, cooperative - Routine HEENT Exam Head: Present: normocephalic, atraumatic Eye: Present: EOMI, PERRL, normal accommodation ENT: Present: mucous membranes moist - Routine Respiratory Exam Present: CTA bilaterally. Absent: rales, rhonchi, crackles - Routine Cardiovascular Exam Present: RRR, S1, S2, no murmur - Routine Abdominal Exam Present: soft, normoactive bowel sounds, non distended, non tender - Routine Extremities Exam Present: no edema, non tender, full ROM - Routine Back/Spine/Pelvis Exam Back/Spine: Present: full ROM - Routine Musculoskeletal Exam Musculoskeletal: Present: no clubbing or cyanosis, normal strength, moving extremities well, limited range of motion - Routine Skin Exam Present: intact, dry, warm - Routine Neurological Exam Present: alert, oriented X3, CN II-XII intact, moving all extremities, normal speech. Absent: facial asymmetry - Routine Psychiatric Exam Present: normal affect, normal thought process, cooperative, good insight, good judgment Hospital Course This is a general summary of the patient's hospital course. For more details refer to the complete medical record. Hospital course: Impression Dizziness- transient -Lacunar TIA vs. Labyrinthitis Chronic aphasia-3 years (Clarification: Word finding deficits) Hypercholesterolemia Hypothyroidism with elevated TSH Coronary artery disease GERD Osteoarthritis Restless leg syndrome History of atrial fib History of malignant polyp-tubular adenoma Plan 09/25/17 Admit patient Should patient observation for monitoring given dizziness At time of admission her symptoms have resolved. Orthostatic vital signs are negative and patient is asymptomatic Unfortunately, due to her pacemaker. We are unable to obtain an MRI to rule out acute ischemia We will continue to monitor patient on cardiac telemetry Will obtain a TSH for laboratory completeness Home medications are reviewed. Patient is chronically on Xarelto for anticoagulation Regarding Aphasia- has been chronic . However, she relates it worsening following her cardiac event in 2013 in which she had pacemaker placed. The difficulty in finding words, may be related to TIA, microvascular chronic ischemia, early dementia ? Normal saline at 100 mL per hour for gentle hydration PT/OT consultation to evaluate gait and safety SCDs to bilateral lower extremity for DVT prophylaxis Will discuss further orders and plan of care with attending, Dr. Madera At time of discharge medical care will return to primary care provider, Dr Melton 09/26/17 Assessment and Plan (1) Dizziness Current visit: Yes Status: Acute Assessment and Plan: Assessment and plan: Dizziness- transient -this sounds like vertigo -meclizine PRN -Carotid Doppler, transthoracic echo still pending performance -Repeat CT of the head with and without contrast tomorrow -add low-dose aspirin -Already on a statin Chronic aphasia-3 years -I don't think this is really aphasia. This sounds more like a memory issue -this sounds more like a dementia issue as she doesn't even know what she wants to say it's not that she knows wants to say but can't express it. Continue remainder of home medications and monitor. Unable to get an MRI due to PPM. Obtain f/u CT in AM to R/O acute stroke. 09/27/17 Patient is doing well. Follow up CT is normal. Echo with no significant findings per verbal report. Extensive discussion on when to seek emergency treatment. Needs to follow up with Dr. Melton re: hospitalization this week. Recommend no driving until cleared by PCP. Avoid rapid bending or lifting, avoid rapidly turning neck. PRN Meclizine. Will need follow up on elevated TSH. Time spent with patient: 25 - 35 minutes Resuscitation Status: Full Code Discharge Plan - Discharge Disposition Discharge Date: 09/27/17 Disposition: 01 Discharged Home, Self-Care *Condition: Improved Reason For Visit (Visit label in EMR): tia - Discharge Medications *Discharge Medications: New Meclizine [Antivert] 1 tab PO TID PRN #30 tab PRN Reason: Dizziness Aspirin Chewable [ASA] 81 mg PO DAILY tab.chew Continue Atorvastatin Calcium 20 mg PO HS #0 Duloxetine [Cymbalta] 60 mg PO DAILY Ropinirole [Requip] 0.5 mg PO PM Ropinirole HCl [Requip] 2 mg PO HS #0 Rivaroxaban [Xarelto] 20 mg PO WS #0 tab Carvedilol 3.125 mg PO BID #0 Acetaminophen [Acetaminophen Extra Strength] 500 mg PO Q4H PRN #0 tab PRN Reason: PAIN Levothyroxine Sodium 100 mcg PO ACB Donepezil HCl [Aricept] 10 mg PO DAILY - Discharge Packet/Instructions *Diet: Regular *Activity: As tolerated. No driving until cleared by PCP *Pain Management/Treatment: OTC Tylenol per med rec *Wound Care: N/A *Expected Signs/Symptoms: May still have some dizziness at times. Take meclizine if feeling dizzy. Be sure to drink plenty of fluids. *Notify Physician if: Worsening dizziness or other concerns. *During Business Hours Contact: Dr. Melton's office *After Business Hours Contact: [facility] [place] *Pending Lab/Results: Follow up w/your PCP - Referrals/Follow Up *Referrals/Follow Up: Vanessa Melton, [Physician] - 1 Week (Need to follow up on Thyroid testing. ) - Patient Handouts Patient Handouts: Transient Ischemic Attack (DC), Cardiac Stress Test (DC) - Dismissal Complete Discharge Instructions are:: Complete Physician Narrative - Narrative Physician: Elvia Madera MD Attestation Narrative: Date: 09/27/17 Time: [id number] Ms. Weiss was independently interviewed and examined by me. She has felt fairly well since admission. She did not sleep well last evening but that's her norm. The night before she slept very well. She has had no further episodes of dizziness or vertigo. Her studies were all unremarkable. Her was in the room with her this morning. Your comfortable going home. I did explain to her that she needs to stay hydrated. I am going to send her home with meclizine PRN and told her if this happens again to take whining given a half an hour and see if it resolves. If she does continue to have these episodes that she might benefit from inner ear evaluation. She was ambulating without difficulty. She had no complaints. She was felt to be stable for discharge. Physical exam Gen: alert and oriented. NAD Skin: warm and dry HEENT: NC/AT PERRL, EOMI, Sclera, lids and conjunctiva wnl. MMM. OP clear. Neck: No JVD, Carotids 2+ without bruits Lungs: clear. No rales, rhonchi or wheezes CV: regular. No murmur, rub or gallop Abd: soft. +BS. NT/ND MS: No edema. Good strength and ROM bilaterally Neuro: No focal deficits Psy: Appropriate mood and affect I have discussed the assessment and plan with the STUDIO OPERATOR. I have reviewed all her labs, notes and imaging. I agree with documentation is presented above.
--- NOTE | 2017-09-28 08:51 | Echocardiogram ---
DATE OF PROCEDURE September 26, 2017 This is a two-dimensional echo with spectral Doppler, color-flow and M-mode. It was obtained in a patient with TIA. Left atrium is dilated. Left ventricle end-diastolic dimension is normal. Left ventricle wall thickness is increased. LV systolic function is normal with ejection fraction of 62%. Right atrium is dilated. Right ventricle is normal. Aortic root dimension is normal. Mitral valve is morphologically normal with trace of mitral regurgitation. Aortic valve shows fibrocalcific changes with no stenosis. Mild aortic insufficiency is present. Tricuspid valve shows mild tricuspid regurgitation with moderate pulmonary hypertension with estimated pulmonary artery systolic pressure of 46. Pulmonary valve shows no pulmonary insufficiency. There is no pericardial effusion. IMPRESSION 1. Grossly no intracardiac thrombus or mass. 2. Normal LV systolic function with ejection fraction of 62%. 3. Concentric left ventricular hypertrophy. 4. Biatrial dilation. 5. Trace of mitral regurgitation. 6. Aortic sclerosis with mild aortic insufficiency. 7. Mild tricuspid regurgitation with moderate pulmonary hypertension with estimated pulmonary artery systolic pressure of 46. MTDD
== END 2017-09-27 14:30 | disposition home or self-care (01) ==
LOC: MED 08:44 → ED 08:44 → MED 11:25
PROVIDERS: ADMIT Internal Medicine Cardiovascular Disease; ATTEND Internal Medicine Cardiovascular Disease

== ENCOUNTER 2018-01-26 07:30 | Inpatient (IN) ==
[~2018-01-26 07:30] MED LIST: ACETAMINOPHEN 500 MG TABLET PO ONE; DEXAMETHASONE 4 MG/ML INJECTION IVP ONE; FAMOTIDINE PB 20 MG/50 ML BAG IV ONE; LIDOCAINE 1% (10mg/ml) 2mL INJ PF SDV ID ONE; METOCLOPRAMIDE 10mg/2ml INJECTION IVP ONE; ONDANSETRON 4 MG/2 ML INJECTION IVP ONE
[2018-01-26] MEDS ORDERED: EPINEPHrine PF 0.25 MG, BUPIVACAINE 0.25% PF 30 ML, KETOROLAC INJ 60 MG in NS 30 ML OPSITE ONE (08:00)
[2018-01-26 08:07] VITALS: BMI 27.5
[2018-01-26] MEDS: LR 1,000 ML IV SCH ×2 (08:40→10:30)
[2018-01-26] MEDS: NOZIN NASAL SWAB NAS SCH ×4 (08:46→20:23)
--- NOTE | 2018-01-26 09:04 | Anesthesia Preoperative Report ---
Anesthesia Preoperative Record - Date and Time Date: 01/26/18 Preoperative Diagnosis: Right knee primary arthritis NPO Since Date: 01/25/18 NPO Since Time: 23:00 Allergies/Adverse Reactions: Allergies Allergy/AdvReac Type Severity Reaction Status Date / Time omeprazole Allergy Mild NAUSEA & Verified 01/26/18 08:29 VOMITING meloxicam Allergy Unknown Verified 01/26/18 08:29 - Vital Signs Vital Signs: Temperature 98.5 F 01/26/18 08:05 Pulse Rate 60 01/26/18 08:43 Respiratory Rate 16 01/26/18 08:05 Blood Pressure 113/62 01/26/18 08:05 Pulse Oximetry 95 01/26/18 08:05 Height and Weight: Height 1.6 m Weight 70.5 kg Body Mass Index 27.5 - Medications Inpatient Medications: Current Medications Cefazolin Sodium (Kefzol 1 Gm Vial) 1 g IVP PREOP ONE Stop: 01/26/18 10:01 Epinephrine HCl 0.25 mg/Bupivacaine HCl 30 ml/Ketorolac Tromethamine 60 mg/ Sodium Chloride 62.25 mls @ 1 mls/hr OPSITE INTRAOP ONE; Protocol Stop: 01/28/18 22:14 Lactated Ringer's (Lactated Ringers) 1,000 mls @ 50 mls/hr IV .Q20H ROSAURA Last Admin: 01/26/18 08:40 Dose: 50 mls/hr Isopropyl Alcohol (Nozin Nasal Swab) 1 each OSVALDO Q1M ROSAURA Stop: 01/26/18 16:48 Last Admin: 01/26/18 08:59 Dose: 1 each Miscellaneous Medication (Tranexamic 3gm/Ns 45ml Irr Mix) 75 ml IR O ONE Stop: 01/26/18 16:35 Sodium Chloride (Iv Flush) 10 - 80 ml IV PRN PRN PRN Reason: Flushing Home Medications: Home Medications Medication Instructions Recorded Confirmed Type Atorvastatin Calcium 20 mg PO HS #0 07/02/15 01/26/18 History Carvedilol 3.125 mg PO BID #0 07/02/15 01/26/18 History Rivaroxaban [Xarelto] 20 mg PO WS #0 tab 07/02/15 01/26/18 History Donepezil HCl [Aricept] 10 mg PO HS 09/25/17 01/26/18 History Duloxetine [Cymbalta] 60 mg PO DAILY 09/25/17 01/26/18 History Levothyroxine Sodium 100 mcg PO ACB 09/25/17 01/26/18 History Ropinirole [Requip] 0.5 mg PO WS 09/25/17 01/26/18 History Acetaminophen [Tylenol] 325 mg PO Q4H PRN 01/06/18 01/26/18 History Psyllium Husk/Aspartame [Metamucil 3.4 gm PO TID 01/06/18 01/26/18 History Fiber Singles Packet] Ropinirole [Requip] 2 mg PO HS 01/06/18 01/26/18 History Is Patient on Beta Adrienne?: No - Medical History Respiratory: DENIES: Sleep Apnea Cardiovascular: Reports: Arrhythmia (h/o afib), Hypertension, High Cholesterol, Myocardial Infarction (2013) Gastrointestional: Reports: Gastroesophageal Reflux Disease Neuro/Musculoskeletal: Reports: Other (restless legs; fibromyalgia, osteoporosis ) Renal/Endocrine: Reports: Thyroid Disease Other History: Reports: Blood Transfusions (1966, no known reaction) - Surgical History HEENT Surgeries: Reports: Eye Surgery (cataract extraction 2006), Other (hx of TMJ) Cardiac Surgeries/Treatments: Reports: Cardiac Catheterization, Pacemaker, Other (cardioversion 2013) GI Surgery/Treatments: Reports: Colonoscopy (x2, h/o polyps; malignant polyp x1) Musculoskeletal Surgery/Tx: Reports: Orthopedic Surgery (bunionectomy) Reproductive Surgery/Treatment: Reports: Dilation and Curettage, Other (breast biopsy) Anesthesia Reactions: None Hx Family Anesthesia Reaction: No History of Motion Sickness: No - Social History Smoking Status: Never smoker Hx Chewing Tobacco Use: No Second Hand Exposure: No Substance Use Type: does not use Alcohol Intake Frequency: does not drink - Pertinent Findings Paced: 100% - Physical Exam Respiratory Exam: Present: lungs clear, bilateral breath sounds equal Cardiovascular Exam: Present: regular rate and rhythm - Airway Assessment Mallampati Score: II TMD: 3 Fingerbreadths Neck Extension: fair Overall Assessment: no airway concerns - ASA ASA Score: 3 - Plan Anesthesia: General TIVA, General Inhalation Gases, Neuroaxial Peripheral Nerve Block: Adductor Canal-Right - Discussion Discussion: Discussed risks/options/alternatives of anesthesia and questions answered. Patient consents. Nursing pain assessment noted. Attestation Statement: Prior to the delivery of any anesthetic medication, I examined the patient, developed the plan, obtained the patient's consent and discussed the risk and benefits of the procedure with the patient/guardian. - Additional Information Seen by Anesthesia: Yes
[2018-01-26] MEDS ORDERED: MIDAZOLAM 2mg/2ml INJECTION ONE (09:44)
[2018-01-26] MEDS ORDERED: FentaNYL 100 MCG/2 ML INJECTION ONE (09:44)
[2018-01-26] MEDS ORDERED: LIDOCAINE 2% (100mg/5mL) 5ml PF SDV ONE (09:45)
[2018-01-26] MEDS ORDERED: BUPIVACAINE 0.75%/DEXTROSE 8.5% SPINAL 2 ML AMPULE IJ ONE (09:45)
[2018-01-26] MEDS ORDERED: PROPOFOL 500 MG/50 ML VIAL ONE (09:58)
[2018-01-26] MEDS ORDERED: CEFAZOLIN 1 G INJECTION IVP ONE (10:00)
[2018-01-26] MEDS ORDERED: TRANEXAMIC ACID 3,000 MG in NS 45 ML TOP ONE (10:23)
[2018-01-26] MEDS ORDERED: VANCOMYCIN 1,000 MG INJECTION IAR ONE (10:23)
[2018-01-26] MEDS ORDERED: HYDROMORPHONE 2 MG/ML INJECTION IVP PRN (11:00)
[2018-01-26] MEDS ORDERED: ONDANSETRON 4 MG/2 ML INJECTION IVP PRN ×2 (11:00→12:32)
[2018-01-26] MEDS ORDERED: ROPIVACAINE 0.5% (5mg/ml) 30ml INJ ONE (11:03)
--- NOTE | 2018-01-26 11:30 | Operative Note ---
- Procedure Preoperative Diagnosis: Right knee primary degenerative joint disease Postoperative Diagnosis: Same as preoperative diagnosis. Surgeon: Bhavin Kaufman MD Coordinator Of Placement: Jovita Lovelace Complications: None. Anesthesia: Spinal. Estimated Blood Loss: See Anesthesia Record. Fluids: Please see Anesthesia Record. Description of Procedure: Mrs. Weiss and her right knee were identified and marked in the preoperative holding area. She was brought back to the operating suite. Spinal anesthetic was administered and she was placed supine on the operating table. The right lower extremity was prepped and draped in my normal sterile fashion. Timeout was performed. The [employer]ic robotic arm was used during the surgery. She had valgus deformity which was partially correctable with a mild flexion contracture. A standard anterior midline incision followed by medial parapatellar arthrotomy was performed. Anterior fat pad and meniscus were removed. The vast majority of her cartilage loss was in the lateral compartment. Medial patellofemoral compartment were relatively well maintained. The patella was everted and a patellar osteotomy was performed leaving 12 mm of bone. Tibial and femoral arrays and checkpoints were placed both within the original incision. The bone was then registered with the Quintic robot. Osteophytes were removed and gaps were captured both 90 and 0 with correction. The knee was balanced with placed in the tibial component and 1 of valgus as well as the femoral component. The femoral component was then moved anterior to obtained a 2 mm gaps in flexion. The [employer] robotic arm was then used to assist with the bone cuts. Posterior osteophytes and remaining meniscus were removed. Trial components were placed. We used a 4 femur and a 4 tibia with a 9 mm spacer and a 29 patella. She tracked well and was well balanced throughout range of motion. The arrays were then removed. The tibia was then stamped the proper rotation. The bone was prepared for cementing I then cemented the components into place and allowed them to cure in extension. Hemostasis was obtained with electrocautery. After the cement had cured the knee again was taken through range of motion and was well balanced and tracked well. 3 grams of TXA was allowed to sit in the wound for 5 minutes and then suctioned out. After a final thorough irrigation with normal saline as well as Betadine 1 g vancomycin powder was placed into the knee joint. We then closed the capsule with #1 Vicryl. I then left my chiropractic assistant closed the subcutaneous tissue with both 2-0 Vicryl in an interrupted fashion. The subcutaneous tissue closed with a 4-0 Monocryl followed by Dermabond. Mediplex dressing will be placed and the patient will be taken back to the recovery room under the care of anesthesia.
--- NOTE | 2018-01-26 12:08 | Anesthesia Procedure Note ---
Peripheral Nerve Blockade - Procedure Physician: Satya Kaufman MD Date: 01/26/18 Discussion: Discussed risks/options/alternatives of anesthesia and questions answered. Patient consents. Nursing pain assessment noted. Block Start: 11:59 Block Stop: 12:03 Block Employed: Adductor Canal-Right Indication: Post-Operative Pain Approach: Right Side Confirmed Position: Supine Patient: Consent, Risks/Benefits Discussed, Informed, Post Block Act. Discussed IV Sedation: No (post spinal anesthetic) Sedation: Awake Initial Vital Signs: Temperature 98.5 F 01/26/18 08:05 Temperature Source Oral 01/26/18 08:05 Pulse Rate 60 01/26/18 08:05 Respiratory Rate 16 01/26/18 08:05 Blood Pressure 113/62 01/26/18 08:05 Blood Pressure Mean 79 01/26/18 08:05 Blood Pressure Position Sitting 01/26/18 08:05 Pulse Oximetry 95 01/26/18 08:05 Oxygen Delivery Method 01/26/18 08:05 Post Vital Signs: Temperature 97.2 F 01/26/18 11:56 Pulse Rate 63 01/26/18 11:56 Respiratory Rate 16 01/26/18 11:56 Blood Pressure 122/57 01/26/18 11:56 Pulse Oximetry 93 01/26/18 11:56 Prep: Chlorhexadine/ETOH, Sterile Technique Ultrasound Used?: Yes - Nerve Simulator Needle Depth: 3 Muscle Response: No Paresthesia/Pain: None - Injectate Ropivacaine (%): 0.5 Ropivacaine (mL): 15 Was Epi 1:200,000 Used?: No Injection: Injection made incrementally with constant monitoring and aspiration every 5 ml
[2018-01-26] MEDS ORDERED: DEXAMETHASONE 20 MG/5 ML INJECTION IVP ONE ×2 (12:32→17:00)
[2018-01-26] MEDS ORDERED: DiphenhydrAMINE 50 MG/ML INJECTION IVP PRN (12:32)
[2018-01-26] MEDS ORDERED: LORazepam 1 MG TABLET PO PRN (12:32)
[2018-01-26] MEDS ORDERED: DiphenhydrAMINE 25 MG CAPSULE PO PRN (12:32)
--- NOTE | 2018-01-26 12:33 | Anesthesia Postoperative Note ---
- Date and Time Date: 01/26/18 Time: 12:31 - Status Patient Participated in Evaluation: Patient Participated in Person Vital Signs: Temperature 97.0 F 01/26/18 12:25 Pulse Rate 60 01/26/18 12:25 Respiratory Rate 18 01/26/18 12:25 Blood Pressure 134/87 01/26/18 12:25 Pulse Oximetry 94 01/26/18 12:25 Respiratory Function: Airway Patent, Regular Respirations Cardiovascular Function: Regular Pulse Mental Status: Alert and Oriented Pain Intensity: 0 Hydration: IV Infusing Nausea/Vomiting: None Complications During Recover: None Apparent Post Anesthesia Care Notes: moves lower extremeties. - Follow-Up Instructions Instructions: Per Surgeon
[2018-01-26] MEDS: NS 1,000 ML IV SCH (12:44)
--- NOTE | 2018-01-26 13:04 | XRay Report ---
Indication: postoperative image PROCEDURE: XR knee RT 2V: Encounter: Initial Comparison: None Findings: Postoperative changes of right total knee replacement are seen. There is expected postoperative subcutaneous gas. No evidence of hardware failure or acute fracture. No retained radiopaque surgical instruments or sponges. Overlying material causing artifact. Impression: New right total knee prosthesis without evidence of immediate complication. .
[2018-01-26] MEDS: ACETAMINOPHEN 325 MG TABLET PO SCH ×3 (13:54→20:24)
[2018-01-26] MEDS: PSYLLIUM PACKET PO SCH ×2 (14:56→20:24)
[2018-01-26] MEDS ORDERED: TRANEXAMIC ACID 3gm/NS 45ml IRR MIX IR ONE (16:34)
[2018-01-26] MEDS ORDERED: SALINE FLUSH 10ml SYRINGE IV PRN (16:34)
[2018-01-26] MEDS: CARVEDILOL 3.125 MG TABLET PO SCH (17:05)
[2018-01-26] MEDS: CEFAZOLIN 1 G in NS 100 ML IV SCH (17:24)
[2018-01-26] MEDS ORDERED: ROPINIROLE 0.5 MG TABLET PO SCH (17:30)
[2018-01-26] MEDS ORDERED: RIVAROXABAN 20 MG TABLET PO SCH (17:30)
[2018-01-26] MEDS: TRAMADOL 50 MG TABLET PO PRN (18:12)
[2018-01-26] MEDS: DOCUSATE SODIUM 100 MG CAPSULE PO SCH (20:23)
[2018-01-26] MEDS ORDERED: ATORVASTATIN 20 MG TABLET PO SCH (21:00)
[2018-01-26] MEDS ORDERED: SENNOSIDES 8.6 MG TABLET PO SCH (21:00)
[2018-01-26] MEDS ORDERED: ROPINIROLE 2 MG TABLET PO SCH (21:00)
[2018-01-26] MEDS ORDERED: DONEPEZIL 10 MG TABLET PO SCH (21:00)
[2018-01-27] MEDS: NS 1,000 ML IV SCH (01:33)
[2018-01-27] MEDS: CEFAZOLIN 1 G in NS 100 ML IV SCH (01:34)
[2018-01-27] MEDS ORDERED: LEVOTHYROXINE 100 MCG TABLET PO SCH (06:30)
[2018-01-27] MEDS: TRAMADOL 50 MG TABLET PO PRN (07:40)
--- NOTE | 2018-01-27 08:26 | Orthopedic Progress Note ---
Date: Date: 01/27/18 Time: 820 Subjective/Severity of Illness: Juliane is sitting up in bed this morning during rounds. Post op day 1 Right TKA. Pain has been well controlled with Tramadol. Has been up ambulating. Denies CP, SOA, nausea, tolerating PO well. History of Afib, will restart Xalerto today. Hgb 10.3. Orthopedic Exam Vital signs: Temperature 97.5 F 01/27/18 07:30 Pulse Rate 64 01/27/18 07:30 Respiratory Rate 20 01/27/18 07:40 Blood Pressure 133/85 01/27/18 07:30 Pulse Oximetry 96 01/27/18 07:30 - Constitutional General Appearance: Present: alert, orientated x3, cooperative, no acute distress - Respiratory Exam Present: CTA bilaterally, non-labored - Cardiovascular Exam Present: Regular Rate/Rhythm, pedal pulses intact - Abdominal Exam Present: soft. Absent: tenderness, distended - Extremities Exam Present: pulses intact - Dressing Dressing: dry, intact, bloody drainage Comments: Right knee mepilex. ecchymosis surrounding surgical incision. - Integumentary Exam Present: pink, warm, dry - Neurological Exam Present: intact to light touch, no deficits - Psychiatric Exam Present: alert, oriented - Labs Result Diagrams: 01/27/18 04:06 01/27/18 04:06 Abnormal lab results 01/27/18 01/27/18 Range/Units 04:06 04:06 Hgb 10.3 L (12-16) GM/DL Hct 32.2 L (36-46) % BUN 19.0 H (7-17) MG/DL BUN/Creatinine Ratio 27 H (6-26) RATIO Glucose 138 H (65-110) MG/DL H & H 01/27/18 Range/Units 04:06 Hgb 10.3 L (12-16) GM/DL Hct 32.2 L (36-46) % Orthopedic Assessment and Plan (1) Primary osteoarthritis of right knee Status: Acute Assessment and Plan: S/P Right TKA Current anti-coagulation protocol, restarted xarelto for VTE prophylaxis. SCD's for added protection. PT/OT services to improve independent function. Discharge Planning per Case Management. - Anticoagulation Therapy Anticoagulation: Resume home anticoagulant - Additional Diagnoses Atrial Fibrillation: resume medications, rate controlled, other (pulse and rate regular ) Hypertension: stable, resume medications CAD: no active chest pain Anemia: no intervention required, patient was asymptomatic, labs monitored Hospital Course Summary Disclaimer: The visit summary below is not to be considered part of the above Progress Note.
[2018-01-27] MEDS ORDERED: DULOXETINE 60 MG CAPSULE PO SCH (09:00)
[2018-01-27] MEDS ORDERED: POLYETHYL GLYCOL 3350 17gm PACKET PO SCH (09:00)
[2018-01-27] MEDS: ACETAMINOPHEN 325 MG TABLET PO SCH ×2 (09:05→12:42)
[2018-01-27] MEDS: DOCUSATE SODIUM 100 MG CAPSULE PO SCH (09:05)
[2018-01-27] MEDS: CARVEDILOL 3.125 MG TABLET PO SCH (09:05)
[2018-01-27] MEDS: NOZIN NASAL SWAB NAS SCH (09:05)
[2018-01-27] MEDS: PSYLLIUM PACKET PO SCH (09:06)
[2018-01-27 11:47] VITALS: BP 134/69; PULSE 61; RESP 16; TEMP 96.9; O2SAT 99
[2018-01-27] MEDS ORDERED: SENNOSIDES 8.6 MG TABLET PO PRN (11:49)
[2018-01-27] MEDS ORDERED: FALL RISK - PHARMACY CONSULT MC ONE (12:04)
--- NOTE | 2018-01-27 12:52 | Discharge Summary ---
Orthopedic Discharge Info Date of admission: 01/26/18 07:45 Anticipated date of discharge: 01/27/18 Primary care physician: Vanessa Melton DO Attending Physician: Satya Kaufman MD Consults: 01/26/18 07:58 Consult to Anesthesiology [CONS] Routine Reason For Exam: Preoperative Assessment 01/26/18 12:32 Case Management Consult [CONS] Routine Reason For Exam: Discharge Planning DME-Walker [CONS] Routine Height: 5 ft 3 in Weight: 70.5 kg Total Joint Outpatient Therapy [CONS] Routine Comment: Remove dressing in 2 weeks - Discharge Diagnosis (1) Primary osteoarthritis of right knee Status: Acute - Laboratory Result Diagrams: 01/27/18 04:06 01/27/18 04:06 Laboratory: Abnormal lab results 01/27/18 01/27/18 Range/Units 04:06 04:06 Hgb 10.3 L (12-16) GM/DL Hct 32.2 L (36-46) % BUN 19.0 H (7-17) MG/DL BUN/Creatinine Ratio 27 H (6-26) RATIO Glucose 138 H (65-110) MG/DL H & H 01/27/18 Range/Units 04:06 Hgb 10.3 L (12-16) GM/DL Hct 32.2 L (36-46) % Orthopedic Discharge HPI - HPI Comments This patient was admitted for elective surgical tx of end stage degenerative joint disease that failed to respond to conservative treatment. Further details of this is found in the admission H&P. Orthopedic Hospital Course Hospital course: 01/27/18 12:48 After appropriate preoperative clearance and signing of operative consent, the patient was given IV antibiotics, according to orthopedic protocol. The patient was taken to the operating room and underwent elective joint arthroplasty. Following surgery, antibiotics were discontinued less than 24 hours according to joint protocol. Appropriate anticoagulants were initiated with home xarelot, and SCDs added for DVT prevention. The dressing was clean, dry, and intact. Pain control was obtained via multimodal approach. Bowel motivation addressed with scheduled and PRN medications. Early mobilization was initiated through PT services. Discharge arrangements made by a collaborative effort between the patient and Case Management. History of Atrial fibrillation, patient regular rhythm and rate during hospital stay. Home medications restarted including xarelo. Patient has ecchymosis surrounding soft tissue of right knee surgical incision site. Scant bloody drainage on dressing, mepilex dressing changed. HTN- home medications resumed, BP well controlled. CAD- ho chest pain reported throughout hospitalization. Anemia- post op day 1 hgb 10.3, no acute intervention required, patient asymptomatic. Patient scheduled for medical follow up with PCP in the past week. Follow-up is scheduled in 2-3 weeks. Discharge instructions given by orthopedic providers and nursing staff at discharge. Discharge condition was good. Care extended to > 2 midnight stays?: No Discharge Plan - Med Rec/Dispo Referrals/Follow Up: Vanessa Melton DO [Primary Care Provider] - 02/02/18 9:20 am MANDA CHAVARRIA MD [Physician Nonstaff] - [facility] Instructions: [facility] Postop Instructions Prescriptions: New Acetaminophen [Tylenol] 650 mg PO QID tablet Docusate Sodium [Colace] 100 mg PO BID capsule Milk of Magnesia [Mom] 30 ml PO DAILY udc PEG 3350 17gm PACKET [Miralax] 17 gm PO DAILY packet Tramadol [Ultram] 50 - 100 mg PO Q6H PRN #50 tab PRN Reason: Pain Continue Atorvastatin Calcium 20 mg PO HS #0 Duloxetine [Cymbalta] 60 mg PO DAILY Ropinirole [Requip] 0.5 mg PO WS Acetaminophen [Tylenol] 325 mg PO Q4H PRN PRN Reason: Pain Psyllium Husk/Aspartame [Metamucil Fiber Singles Packet] 3.4 gm PO TID Rivaroxaban [Xarelto] 20 mg PO WS #0 tab Carvedilol 3.125 mg PO BID #0 Levothyroxine Sodium 100 mcg PO ACB Donepezil HCl [Aricept] 10 mg PO HS Ropinirole [Requip] 2 mg PO HS - Disposition 01 Discharged Home, Self-Care - Dismissal Complete Discharge Instructions are:: Complete
[2018-01-28] MEDS ORDERED: BISACODYL 10 MG SUPPOSITORY RECTALLY SCH (20:00)
== END 2018-01-27 14:30 | disposition home or self-care (01) | DRG 470 ==
LOC: NMC.PERIOP 07:45 → SRG 12:35
PROVIDERS: ADMIT Orthopaedic Surgery; ATTEND Orthopaedic Surgery